=== PATIENT | female | born 1955 | race Caucasian/White ===

== ENCOUNTER 2017-05-21 09:00 | Emergency (ER) | payer MEDICAID ==
[2017-05-21 09:04] VITALS: BP 158/94; PULSE 95; RESP 18; TEMP 98.9; O2SAT 98
--- NOTE | 2017-05-21 09:21 | C.PDOC ---
History Of Present Illness Pt is a pleasant 61 yr old female c/o left ankle pain. Pt states that she has chronic left ankle swelling; however, now she is c/o left ankle pain since yesterday morning (the pain is new; the swelling is chronic). She denies any trauma or wearing any new shoes or new exercises; however, she walks a lot (16 blocks too and from work). No fever. Pt states her pain is a "9" on 1-10 scale. No radiation of the pain. PMD: Dr. Odilon Mcpherson . Time Seen by Provider: 05/21/17 09:15 Chief Complaint (Nursing): Lower Extremity Problem/Injury History Per: Patient Onset/Duration Of Symptoms: Days Current Symptoms Are (Timing): Still Present Pain Scale Rating Of: 9 Past Medical History Reviewed: Historical Data, Nursing Documentation, Vital Signs Vital Signs: Last Vital Signs Temp 98.9 F 05/21/17 09:03 Pulse 95 H 05/21/17 09:03 Resp 18 05/21/17 09:03 BP 158/94 H 05/21/17 09:03 Pulse Ox 98 05/21/17 09:47 - Medical History PMH: Asthma, HTN Family History: States: CAD - Social History Hx Tobacco Use: No Hx Alcohol Use: Yes (social) Hx Substance Use: No - Immunization History Hx Influenza Vaccination: Yes Review Of Systems Except As Marked, All Systems Reviewed And Found Negative. Constitutional: Negative for: Fever, Chills Cardiovascular: Negative for: Chest Pain Respiratory: Negative for: Shortness of Breath Musculoskeletal: Positive for: Other (left ankle pain and swelling) Neurological: Negative for: Weakness Physical Exam - Physical Exam Appears: Well, Non-toxic, No Acute Distress Head: Atraumatic Eye(s): bilateral: Normal Inspection, EOMI Ear(s): Bilateral: Normal Nose: Normal Oral Mucosa: Moist Tongue: Normal Appearing Lips: Normal Appearing Teeth: Normal Dentition Gingiva: Normal Appearing Throat: Normal Neck: Normal Lymphatic: Deferred Chest: Symmetrical Cardiovascular: Rhythm Regular Respiratory: Normal Breath Sounds, No Rales, No Rhonchi, No Wheezing Rectal: Deferred Back: Normal Inspection Extremity: Swelling (Left lateral ankle but no warmth to the ankle), Other ( there is tenderness to the left lateral ankle at the region of the edema, ROM intact but pain with doriflexion of the right foot) ED Course And Treatment O2 Sat by Pulse Oximetry: 98 Medical Decision Making Medical Decision Making: Initial Impression: Left ankle pain (acute) with swelling (chronic)--may be secondary to excessive walking; arthritis is also in the differential diagnosis Initial Plan: Will get xrays and give NSAID and ice pack . Disposition Counseled Patient/Family Regarding: Studies Performed, Diagnosis, Need For Followup, Rx Given - Disposition Referrals: Podiatry Clinic [Outside] Disposition: HOME/ ROUTINE Disposition Time: 09:43 Condition: IMPROVED Additional Instructions: Ms. Andrade, thank you for letting us take care of you today. Return to the ER if your symptoms worsen, or if any problems. You should elevate your foot/ankle a couple of times a day and apply a cold pack as needed. You should be seen by the foot doctor (heater installer). Call the phone number listed below to make a Podiatry Clinic appointment (at [facility] in [place]). Prescriptions: Acetaminophen [Tylenol 325mg tab] 2 tab PO Q6 PRN #60 tab PRN Reason: Pain, Moderate (4-7) Instructions: Arthralgia (ED), Swollen Ankle Joint (ED) Forms: [employer] (Croatian) Print Language: ENGLISH - POA Present On Arrival: None - Clinical Impression Clinical Impression: Ankle pain, left, Left ankle swelling
--- NOTE | 2017-05-21 14:11 | RAD ---
PROCEDURE: Left Ankle Radiographs. HISTORY: Left ankle pain; no trauma COMPARISON: None FINDINGS: BONES: No evidence of acute fracture or destructive bony lesion. Small calcaneus spur JOINTS: Mild osteoarthritic changes. SOFT TISSUES: Soft tissue swelling seen more prominent at the lateral malleolus P OTHER FINDINGS: None. IMPRESSION: No evidence of acute pathology. Soft tissue swelling.
== END 2017-05-21 09:57 | disposition home or self-care (01) ==
LOC: C.ER 09:00
DX: M25.472 Effusion, left ankle (principal); M25.572 Pain in left ankle and joints of left foot
CPT/HCPCS: 73610; 96372; 99284; J1885

== ENCOUNTER 2018-05-25 21:51 | Emergency (ER) | payer MEDICAID ==
--- NOTE | 2018-05-25 22:04 | C.PDOC ---
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 Patient denies fever, chill, nausea, vomit, headache, visual changes, weakness, numbness. Chief Complaint (Nursing): High Blood Pressure History Per: Patient History/Exam Limitations: no limitations Onset/Duration Of Symptoms: Hrs Current Symptoms Are (Timing): Still Present Associated Symptoms: Dizziness Recent travel outside of the [place]: No Additional History Per: Patient Past Medical History Reviewed: Historical Data, Nursing Documentation, Vital Signs Vital Signs: Last Vital Signs Temp 98.1 F 05/25/18 23:51 Pulse 92 H 05/25/18 23:51 Resp 16 05/25/18 23:51 BP 124/72 05/25/18 23:51 Pulse Ox 99 05/25/18 23:51 - Medical History PMH: Asthma, HTN Surgical History: No Surg Hx Family History: States: CAD - Social History Hx Tobacco Use: No Hx Alcohol Use: Yes (social) Hx Substance Use: No - Immunization History Hx Tetanus Toxoid Vaccination: No Hx Influenza Vaccination: Yes Hx Pneumococcal Vaccination: No Review Of Systems Constitutional: Negative for: Fever, Chills Eyes: Negative for: Vision Change Cardiovascular: Negative for: Chest Pain, Palpitations Respiratory: Negative for: Shortness of Breath Gastrointestinal: Negative for: Nausea, Vomiting, Abdominal Pain Neurological: Positive for: Dizziness. Negative for: Weakness, Numbness, Headache Physical Exam - Physical Exam Appears: Non-toxic, No Acute Distress Skin: Normal Color, Warm, Dry Head: Atraumatic, Normacephalic Eye(s): bilateral: Normal Inspection, PERRL, EOMI Oral Mucosa: Moist Neck: Normal ROM, Supple Chest: Symmetrical Cardiovascular: Rhythm Regular Respiratory: Normal Breath Sounds, No Rales, No Rhonchi, No Wheezing Gastrointestinal/Abdominal: Soft, No Tenderness, No Guarding, No Rebound Extremity: Normal ROM, No Tenderness, No Swelling Neurological/Psych: Oriented x3, Normal Speech, Normal Cognition, Other (no focal deficits) Gait: Steady ED Course And Treatment - Laboratory Results Result Diagrams: 05/25/18 22:18 05/25/18 22:18 O2 Sat by Pulse Oximetry: 98 (ON RA) Pulse Ox Interpretation: Normal Medical Decision Making Medical Decision Making: Plan: * CT head * EKG * Labs * Antivert 25 mg PO * Ativan 0. mg IVP * IV fluids * UA On reexamination patient states she feel better, not having vertigo patient will be D/C home Disposition Counseled Patient/Family Regarding: Diagnosis - Disposition Referrals: Cecilia Lewis APN [Primary Care Provider] - [facility] [Outside] Disposition: HOME/ ROUTINE Disposition Time: 23:36 Condition: IMPROVED Prescriptions: Meclizine [Antivert] 12.5 mg PO Q6 #20 tab Potassium Chloride 10 meq PO BID #30 tab.er.prt Instructions: Vertigo (a Type of Dizziness), High Blood Pressure in Adults, Hypokalemia (DC) Forms: Gen Discharge Inst Azeri, [employer] (Chinese), Work Excuse Print Language: SWEDISH - POA Present On Arrival: None - Clinical Impression Clinical Impression: Vertigo, Hypertension - Scribe Statement The provider has reviewed the documentation as recorded by the Scribe Richard Keller All medical record entries made by the Scribe were at my direction and personally dictated by me. I have reviewed the chart and agree that the record accurately reflects my personal performance of the history, physical exam, medical decision making, and the department course for this patient. I have also personally directed, reviewed, and agree with the discharge instructions and disposition.
[2018-05-25] MEDS ORDERED: Sodium Chloride 0.9% 1,000 ML IV ONE (22:10)
[2018-05-25 22:21] LABS: BASO # 0.1 K/uL (0.0-0.2); BASO % 0.8 % (0.0-2.0); EOS # 0.1 K/uL (0.0-0.7); EOS % 1.3 % (0.0-4.0); HEMOGLOBIN 12.6 g/dL (11.0-16.0); LYMPH # 3.6 K/uL (1.0-4.3); LYMPH % 36.2 % (20.0-40.0); MEAN CELL VOLUME 83.4 fL (81.0-99.0); MEAN CORPUSCULAR HGB CONC 33.6 g/dL (33.0-37.0); MEAN PLATELET VOLUME 9.1 fL (7.2-11.7); MONO # 0.7 K/uL (0.0-0.8); MONO % 7.3 % (0.0-10.0); NEUT # 5.4 K/uL (1.8-7.0); NEUT % 54.4 % (50.0-75.0); NRBC % 0.2 % (0.0-2.0); RBC 4.49 Mil/uL (3.80-5.20); RED CELL DISTRIBUTION WIDTH 14.5 % (11.5-14.5)
[2018-05-25] MEDS ORDERED: Sodium Chloride 0.9% 1,000 ML ONE (22:21)
[2018-05-25 22:33] LABS: ALB/GLOB RATIO 1.4 (1.0-2.1); ALBUMIN 4.4 g/dL (3.5-5.0); ALT/SGPT 22 U/L (9-52); AST/SGOT 22 U/L (14-36); BLOOD UREA NITROGEN 12 mg/dL (7-17); CALCIUM 9.5 mg/dl (8.6-10.4); GFR AFRICAN-AMERICAN > 60; GFR NON-AFRICAN AMERICAN > 60
[2018-05-25 23:26] LABS: SQUAMOUS EPITHIAL 1 /hpf (0-5); URINE BACTERIA FEW (<OCC); URINE BILIRUBIN NEGATIVE (NEGATIVE); URINE BLOOD NEGATIVE (NEGATIVE); URINE CLARITY Clear (Clear); URINE COLOR Straw (YELLOW); URINE GLUCOSE (UA) NORMAL (Normal); URINE PROTEIN NEGATIVE (NEGATIVE); URINE UROBILINOGEN NORMAL mg/dL (0.2-1.0)
[2018-05-25 23:28] LABS: URINE LEUKOCYTE ESTERASE TRACE Leu/uL (Negative)
[2018-05-25 23:52] VITALS: BP 124/72; PULSE 92; RESP 16; TEMP 98.1
[2018-05-25] MEDS ORDERED: Potassium Chloride 20 mEq/15 ml LIQ UD PO STA (23:58)
[2018-05-26 00:03] VITALS: O2SAT 98
[2018-05-26] MEDS ORDERED: Potassium Chloride 20 mEq ER Tab PO ONE ×2 (00:05)
--- NOTE | 2018-05-26 07:33 | CT ---
Date of service: 05/25/2018 PROCEDURE: CT HEAD WITHOUT CONTRAST. HISTORY: Headache COMPARISON: None available. TECHNIQUE: Axial computed tomography images were obtained through the head/brain without intravenous contrast. Radiation dose: Total exam DLP = 763 mGy-cm. This CT exam was performed using one or more of the following dose reduction techniques: Automated exposure control, adjustment of the mA and/or kV according to patient size, and/or use of iterative reconstruction technique. FINDINGS: HEMORRHAGE: No intracranial hemorrhage. BRAIN: Mild diffuse cerebral atrophy. Scattered focal lucencies in the subcortical and periventricular white matter suggestive for chronic microvascular ischemic change. VENTRICLES: Mild diffuse compensatory enlargement. CALVARIUM: Unremarkable. PARANASAL SINUSES: Left maxillary sinus mucous retention cyst. Trace mucosal thickening of the ethmoid sinuses. MASTOID AIR CELLS: Unremarkable as visualized. No inflammatory changes. OTHER FINDINGS: Atherosclerotic vascular calcifications in the V4 segment of the vertebral and parasellar carotid arteries. Partially empty sella turcica. IMPRESSION: No acute intracranial abnormality. Mild cortical volume loss. Sequela of chronic microvascular disease. Left maxillary sinus mucous retention cyst. If focal neurologic deficit persists, consider correlation with MRI. These findings were preliminarily reported at 10:58 p.m. on 05/25/[address] Enrique Rocha from [facility].
== END 2018-05-26 00:23 | disposition home or self-care (01) ==
LOC: SUPCPDRO 21:51 → C.ER 21:51
DX: R42 Dizziness and giddiness (principal); I10 Essential (primary) hypertension; E87.6 Hypokalemia
CPT/HCPCS: 70450; 80053; 81001; 82948; 85025; 96361; 96374; 99285; J2060; J7030